=== PATIENT | male | born 1960 | race Caucasian/White ===

== ENCOUNTER 2019-05-01 19:23 | Emergency (ER) | payer SELFPAY ==
[2019-05-01 19:47] VITALS: BP 127/70
[2019-05-01] MEDS ORDERED: Tetan/Diph/Pertus SYR(Tdap)* 0.5 ML SYR(BOOSTRIX) use SYR IM ONE (20:09)
--- NOTE | 2019-05-01 20:09 | UC ---
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 Hit a piece of nas wire with the mower and it went into his leg. Occurred this afternoon around 1 pm. Put an oil on it initially. Did not bleed very much or have pain initially. Starting to be painful. Soaked with warm epsom salt at home. " -he is here for tetanus shot as it has been > 10 yrs. -hardly any bleeding. - History of Current Complaint Chief Complaint: UCWounds Time Seen by Provider: 05/01/19 19:36 Stated Complaint: RT LEG INJURY Pain Intensity: 6 - Allergy/Home Medications Allergies/Adverse Reactions: Allergies Allergy/AdvReac Type Severity Reaction Status Date / Time No Known Allergies Allergy Verified 05/01/19 19:47 Home Medications: Home Medications NK [No Home Medications Reported] 05/01/19 [History Confirmed 05/01/19] PMH/Surg Hx/FS Hx/Imm Hx Previously Healthy: Yes - Surgical History Surgical History: Yes Surgery Procedure, Year, and Place: [facility]- 2009 - Family History Known Family History: Positive: Non-Contributory - Social History Alcohol Use: None Substance Use Type: None Smoking Status (MU): Never Smoked Tobacco - Immunization History Most Recent Tetanus Shot: Unknown Review of Systems All Other Systems Reviewed And Are Negative: Yes Constitutional: Positive: Negative Skin: Positive: Other ENT: Positive: Negative Respiratory: Positive: Negative Cardiovascular: Positive: Negative Gastrointestinal: Positive: Negative Motor: Positive: Negative Neurovascular: Positive: Negative Musculoskeletal: Positive: Other: - mild pain at site of injury Neurological: Positive: Negative Is Patient Immunocompromised?: No Physical Exam Appearance: Well-Appearing, No Pain Distress, Well-Nourished - very pleasant Vital Signs: Initial Vital Signs Temp 100 F 05/01/19 19:39 Pulse 81 05/01/19 19:39 Resp 18 05/01/19 19:39 BP 127/70 05/01/19 19:39 Pulse Ox 98 05/01/19 19:39 Respiratory Exam: Normal Respiratory: Positive: Lungs clear Cardiovascular Exam: Normal Cardiovascular: Positive: RRR Musculoskeletal Exam: Normal Neurological Exam: Normal Psychological Exam: Normal Skin: Positive: Other - rt lateral thigh with 3-4 mm small puncture wound w/ no active bleeding. Course/Dx - Course Course Of Treatment: rt leg puncture wound. no need for any hemostasis or sutures. -updtate TDAP vaccine. no h/o allergic rxn to any products. - Differential Diagnoses - Skin Complaint Differential Diagnoses: Other - puncture wound - Diagnoses Provider Diagnosis: Puncture wound of thigh, right, Encounter for immunization Discharge - Sign-Out/Discharge Documenting (check all that apply): Patient Departure All imaging exams completed and their final reports reviewed: No Studies - Discharge Plan Condition: Stable Disposition: HOME Patient Education Materials: Puncture Wound (ED), Tdap and Td Vaccines for Adults (ED) Referrals: Nicholas Harris MD [Primary Care Provider] - If Needed Additional Instructions: Watch for any signs of infection/bleeding at the site of the wound. - Billing Disposition and Condition Condition: STABLE Disposition: Home
== END 2019-05-01 20:29 | disposition home or self-care (01) ==
LOC: UCCORT 19:23
DX: S71.131A Puncture wound without foreign body, right thigh, initial encounter (principal); W22.8XXA Striking against or struck by other objects, initial encounter; Y93.H9 Activity, other involving exterior property and land maintenance, building and construction; Y92.89 Other specified places as the place of occurrence of the external cause; Y99.0 Civilian activity done for income or pay; Z23 Encounter for immunization; Z95.1 Presence of aortocoronary bypass graft
CPT/HCPCS: 90715; 96372; 99201; G0463